=== PATIENT | female | born 2000 | race Caucasian/White ===

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

== ENCOUNTER → 2021-04-06 | Outpatient (CLI) | payer OTHER ==
[~2021-04-06] MED LIST: HYDR-3068 PO
--- NOTE | 2021-04-06 23:16 | RAD ---
Exam: XR HAND_LEFT 3 VIEWS History: Middle finger injury Comparison: None. Findings: Osseous mineralization is normal. No acute fracture or dislocaton. Lucency in the ulnar aspect of the thumb MCP joint may represent sequela of prior dislocation injury. Mild soft tissue swelling at the middle finger proximal interphalangeal joint. Impression: 1. No acute osseous abnormality in the left hand. Electronically signed by: Neo Park MD (04/06/2021 11:14 PM) [facility]
== END ==
LOC: RAD 19:24
PROVIDERS: ATTEND Nurse Practitioner Family
DX: S69.92XA Unspecified injury of left wrist, hand and finger(s), initial encounter (principal); M79.89 Other specified soft tissue disorders; X58.XXXA Exposure to other specified factors, initial encounter; Y93.89 Activity, other specified; Y92.89 Other specified places as the place of occurrence of the external cause; Y99.8 Other external cause status
CPT/HCPCS: 73130